=== PATIENT | male | born 1960 | race Caucasian/White ===

== ENCOUNTER → 2020-08-30 | Outpatient (CLI) | payer MEDICARE, OTHER ==
[~2020-08-30] MED LIST: ASPIRIN CHEWABL81 MG PO; NITROSTAT0.4 MG SL
[2020-08-30 09:23] LABS: HEMOGLOBIN 16.1 gm/dl (14.0-17.5); RED BLOOD COUNT 4.99 M/UL (4.20-5.50); WHITE BLOOD COUNT 5.1 K/UL (4.5-11.0)
[2020-08-30 13:12] LABS: BUN/CREATININE RATIO 20 (0-10)
== END ==
LOC: LAB 08:30
PROVIDERS: Nurse Practitioner
DX: E55.9 Vitamin D deficiency, unspecified (principal); R53.83 Other fatigue; E78.5 Hyperlipidemia, unspecified; M54.9 Dorsalgia, unspecified; I10 Essential (primary) hypertension
CPT/HCPCS: 36415; 80053; 80061; 84436; 84443; 84480; 85025

== ENCOUNTER 2020-11-07 11:12 | Emergency (ER) | payer MEDICARE, OTHER ==
[~2020-11-07] VITALS: Ht 182.9 cm; Wt 111.1 kg
[2020-11-07 13:40] LABS: HEMOGLOBIN 15.4 gm/dl (14.0-17.5); RED BLOOD COUNT 4.71 M/UL (4.20-5.50)
[2020-11-07 14:03] LABS: BUN/CREATININE RATIO 16 (0-10)
[2020-11-08] MEDS ORDERED: ASPIRIN CHEWABL81 MG PO (12:11)
[2020-11-08] MEDS ORDERED: NITROSTAT0.4 MG SL (12:11)
== END 2020-11-08 12:45 | disposition short-term general hospital (02) ==
LOC: ER1 11:12
PROVIDERS: Physician Assistant
DX: Z23 Encounter for immunization (principal); U07.1 COVID-19; J12.82 Pneumonia due to coronavirus disease 2019; R79.1 Abnormal coagulation profile; R82.81 Pyuria; R77.8 Other specified abnormalities of plasma proteins; E11.9 Type 2 diabetes mellitus without complications; E78.5 Hyperlipidemia, unspecified; I10 Essential (primary) hypertension
CPT/HCPCS: 0241U; 71045; 80053; 81001; 82550; 82553; 83874; 84484; 85025; 85379; 87081; 87086; 87880; 93005; 96374; 99284; J1200; J7030; M0245; Q0245; Q9967

== ENCOUNTER → 2021-01-18 | Outpatient (CLI) | payer OTHER ==
[2021-01-18 10:11] LABS: HEMOGLOBIN 14.9 gm/dl (14.0-17.5); RED BLOOD COUNT 4.57 M/UL (4.20-5.50); WHITE BLOOD COUNT 5.9 K/UL (4.5-11.0)
[2021-01-19 09:14] LABS: THYROXINE (T4) 6.9 ug/dL (4.5-12.0)
== END ==
LOC: LAB 08:22
PROVIDERS: Nurse Practitioner
DX: Z01.818 Encounter for other preprocedural examination (principal); Z12.5 Encounter for screening for malignant neoplasm of prostate; R53.83 Other fatigue; E78.5 Hyperlipidemia, unspecified
CPT/HCPCS: 36415; 80061; 84134; 84436; 84443; 84480; 85025; G0103

== ENCOUNTER → 2021-01-22 | Outpatient (CLI) | payer OTHER | LOC: LAB 11:10 | DX: Z01.812 Encounter for preprocedural laboratory examination (principal) | CPT/HCPCS: 36415; 82985; 83036; 85610; 85730 ==

== ENCOUNTER → 2021-01-24 | Outpatient (CLI) | payer OTHER ==
[2021-01-24 16:31] LABS: BUN/CREATININE RATIO 19 (0-10)
== END ==
LOC: LAB 15:07
PROVIDERS: Nurse Practitioner
DX: Z01.812 Encounter for preprocedural laboratory examination (principal)
CPT/HCPCS: 36415; 80053

== ENCOUNTER → 2022-02-20 | Outpatient (CLI) | payer OTHER ==
[2022-02-20 10:01] LABS: RED BLOOD COUNT 4.73 M/UL (4.20-5.50); WHITE BLOOD COUNT 6.3 K/UL (4.5-11.0)
[2022-02-20 10:20] LABS: BUN/CREATININE RATIO 27 (0-10)
[2022-02-21 08:14] LABS: THYROXINE (T4) 9.9 ug/dL (4.5-12.0)
== END ==
LOC: LAB 09:16
PROVIDERS: Nurse Practitioner Family
DX: Z13.1 Encounter for screening for diabetes mellitus (principal); E78.5 Hyperlipidemia, unspecified; I10 Essential (primary) hypertension; K21.9 Gastro-esophageal reflux disease without esophagitis; R53.83 Other fatigue
CPT/HCPCS: 36415; 80053; 80061; 81001; 84436; 84443; 84480; 85025

== ENCOUNTER → 2022-02-25 | Outpatient (CLI) | payer OTHER | LOC: EMI 15:47 | DX: M51.36 Other intervertebral disc degeneration, lumbar region (principal); M25.78 Osteophyte, vertebrae; M47.816 Spondylosis without myelopathy or radiculopathy, lumbar region; M47.817 Spondylosis without myelopathy or radiculopathy, lumbosacral region; M48.061 Spinal stenosis, lumbar region without neurogenic claudication; M48.07 Spinal stenosis, lumbosacral region | CPT/HCPCS: 72148 ==